=== PATIENT | female | born 1970 | race Caucasian/White ===

== ENCOUNTER → 2018-03-19 | Outpatient (CLI) | payer MEDICARE, OTHER ==
[~2018-03-19] MED LIST: ABILIFY20 MG PO; ALPRAZOLAM ER2 MG PO; ATORVASTATIN CA40 MG PO; CYMBALTA60 MG PO; ETODOLAC500 MG PO; FLEXERIL PO; GABAPENTIN 100100 MG PO; HUMALOG100 UNIT/2 SQ; HYDROCODONE-AP1 EAC6 PO; HYDROCODONE-APA1 TA1 PO; IMITREX 50 MG T50 MG PO; KLONOPIN1 MG PO; LANTUS SOL100 UNIT/1 SQ; LANTUS100 UNIT/M SUBQ; LEXAPRO 10 MG T10 M1 PO; LEXAPRO20 MG PO; NEURONTIN 300300 M1 PO; NORCO 5-325 TA1 EACH PO; NOVOLOG100 UNIT/1 SUBQ; PERCOCET PO; ROBAXIN 750 MG750 M1 PO; SUBOXONE 2 MG-1 EAC1 PO; SUBOXONE 4 MG-1 EACH PO; XANAX 0.25 MG0.25 MG PO
== END ==
LOC: M.MRI 03-12 08:43
DX: M47.896 Other spondylosis, lumbar region (principal); M47.892 Other spondylosis, cervical region; G89.29 Other chronic pain

== ENCOUNTER 2018-04-07 19:47 | Inpatient (IN) | payer MEDICARE, OTHER ==
[~2018-04-07] VITALS: Ht 175.3 cm; Wt 89.4 kg
[~2018-04-07 19:47] MED LIST changes: -ABILIFY20 MG PO; -CYMBALTA60 MG PO; -ETODOLAC500 MG PO; -HYDROCODONE-AP1 EAC6 PO; -IMITREX 50 MG T50 MG PO; -KLONOPIN1 MG PO; -NORCO 5-325 TA1 EACH PO; -NOVOLOG100 UNIT/1 SUBQ; -PERCOCET PO; -ROBAXIN 750 MG750 M1 PO; -SUBOXONE 2 MG-1 EAC1 PO; -SUBOXONE 4 MG-1 EACH PO
[2018-04-07 19:55] VITALS: BP 149/78
[2018-04-07 21:03] LABS: ABSOLUTE EOSINOPHILS 0.3 thou/uL (0.0-0.7); ABSOLUTE LYMPHOCYTES 4.6 thou/uL (0.8-5.3); ABSOLUTE MONOCYTES 0.7 thou/uL (0.0-1.2); ABSOLUTE NEUTROPHILS 4.6 thou/uL (1.6-8.1); BASOPHILS 0.3 %; EOSINOPHILS 2.7 %; HEMATOCRIT 40.4 % (37.0-47.0); HEMOGLOBIN 13.9 gm/dL (12.0-15.0); LYMPHOCYTES 45.1 %; MCH 32.4 pg (26.0-34.0); MCHC 34.4 g/dL (28.0-37.0); MCV 94.1 fL (80.0-100.0); MONOCYTES 6.4 %; MPV 8.7 fl. (7.2-11.1); NUCLEATED RBCS 0 /100WBC; PLATELET COUNT* 193 thou/uL (150-400); POLYS 45.5 %; RDW-CV 13.1 % (10.5-14.5); WBC 10.2 thou/uL (4.0-11.0)
[2018-04-07 21:08] LABS: CALCIUM 8.4 mg/dL (8.5-10.1); CREATININE 0.9 mg/dL (0.6-1.3); POTASSIUM 3.8 mmol/L (3.5-5.1)
[2018-04-07 21:11] LABS: APTT 25.9 Seconds (25.0-31.3); PROTIME 9.8 Seconds (9.20-11.50)
[2018-04-07 21:13] LABS: ALBUMIN 3.4 g/dL (3.4-5.0); TOTAL BILIRUBIN 0.2 mg/dL (<0.1-1.0); TOTAL PROTEIN 6.6 g/dL (6.4-8.2)
--- NOTE | 2018-04-07 21:46 | NUR ---
PATIENT REPORTS SHE HAS VERY DIFFFICULT VEINS. CTA WAS ORDERD ATTEMPT [address] BIGGS NOTIFIED AND IS AT BEDSIDE TALKING WITHPATIENT ABOUT LUMBAT TAP.
[2018-04-07 23:18] LABS: CSF CLARITY CLEAR; CSF COLOR COLORLESS; VOLUME 11 ml
[2018-04-07 23:19] LABS: CSF CLARITY CLEAR; CSF COLOR COLORLESS; CSF RBC 18 /mm3; CSF WBC 8 /mm3 (0-10); VOLUME 11 ml
[2018-04-07 23:19] LABS: CSF RBC 3 /mm3; CSF WBC 6 /mm3 (0-10)
[2018-04-08 00:17] VITALS: BP 123/69
[2018-04-08 00:30] VITALS: BP 124/72
[2018-04-08] MEDS ORDERED: CYMBALTA60 MG PO (03:55)
[2018-04-08] MEDS ORDERED: ETODOLAC500 MG PO (03:55)
[2018-04-08] MEDS ORDERED: KLONOPIN1 MG PO (03:57)
[2018-04-08] MEDS ORDERED: HYDROCODONE-AP1 EAC6 PO (03:58)
--- NOTE | 2018-04-08 05:16 | NUR ---
PATIENT ARRIVED TO UNIT AT 0024. ALERT AND ORIENTED X 4. VITALS STABLE. RA. ORIENTED TO ROOM AND STAFF. UP INDEPENDENTLY. EDUCATED ABOUT FALL PREVENTION. DENIES HEADACHE. COMPLIANTS OF CHRONIC BACK PAIN. FENTANYL GIVEN, EFFECTIVE. SKIN INTACT. DENIES NAUSEA. BOX LUNCH PROVIDED. FLUIDS INFUSING PER ORDER. HOURLY ROUNDS. NURSING WILL CONTINUE TO MONITOR.
[2018-04-08 07:44] LABS: HEMATOCRIT 40.2 % (37.0-47.0); HEMOGLOBIN 13.9 gm/dL (12.0-15.0); MCH 32.4 pg (26.0-34.0); MCHC 34.5 g/dL (28.0-37.0); MCV 93.7 fL (80.0-100.0); MPV 8.9 fl. (7.2-11.1); RBC 4.29 mil/uL (4.20-5.00); RDW-CV 12.9 % (10.5-14.5); WBC 8.4 thou/uL (4.0-11.0)
[2018-04-08 07:56] LABS: CREATININE 0.8 mg/dL (0.6-1.3)
[2018-04-08] MEDS ORDERED: ROBAXIN 750 MG750 M1 PO (08:11)
[2018-04-08 08:30] VITALS: BP 108/67
[2018-04-08] MEDS ORDERED: PERCOCET PO (12:04)
[2018-04-08] MEDS ORDERED: IMITREX 50 MG T50 MG PO (12:05)
[2018-04-08 12:27] VITALS: BP 108/67
[2018-04-08 12:48] VITALS: BP 108/67
--- NOTE | 2018-04-08 12:50 | NUR ---
PATIENT HAS BEEN ALERT AND ORIENTED TODAY, PLEASANT BUT ANXIOUS. SPOUSE AT BEDSIDE TODAY, MRI WAS DONE TODAY WITH NORMAL RESULTS. PATIENT IS BEING DISCHARGED TO HOME. DISCHARGE INSTRUCTIONS AND PRESCRIPTIONS GIVEN TO PATIENT, QUESTIONS ANSWERED FOR PATIENT AND . AMBULATED OUT TO TRUCK TO GO HOME.
== END 2018-04-08 12:53 | disposition home or self-care (01) | DRG 103 ==
LOC: M.ERS 19:47 → M.TBA-ER 23:48 → M.ORTHSURG 23:48
PROVIDERS: Emergency Medicine; Physician Assistant; ADMIT Internal Medicine
PROC: 009U3ZX Drainage of Spinal Canal, Percutaneous Approach, Diagnostic (ICD-10-PCS; principal; 2018-04-07)
DX: G43.901 Migraine, unspecified, not intractable, with status migrainosus (principal); G25.81 Restless legs syndrome; F41.9 Anxiety disorder, unspecified; F17.210 Nicotine dependence, cigarettes, uncomplicated; E11.65 Type 2 diabetes mellitus with hyperglycemia; M47.896 Other spondylosis, lumbar region; M47.892 Other spondylosis, cervical region; M62.838 Other muscle spasm; Z79.4 Long term (current) use of insulin; Z79.899 Other long term (current) drug therapy; Z88.8 Allergy status to other drugs, medicaments and biological substances

== ENCOUNTER 2018-06-30 15:10 | Emergency (ER) | payer MEDICARE, OTHER ==
[~2018-06-30] VITALS: Ht 177.8 cm; Wt 91.7 kg
[~2018-06-30 15:10] MED LIST changes: +CYMBALTA60 MG PO; +ETODOLAC500 MG PO; +HYDROCODONE-AP1 EAC6 PO; +IMITREX 50 MG T50 MG PO; +KLONOPIN1 MG PO; +PERCOCET PO; +ROBAXIN 750 MG750 M1 PO
[2018-06-30] MEDS ORDERED: NOVOLOG100 UNIT/1 SUBQ (15:24)
[2018-06-30] MEDS ORDERED: ABILIFY20 MG PO (15:26)
[2018-06-30] MEDS ORDERED: SUBOXONE 2 MG-1 EAC1 PO (15:26)
[2018-06-30 16:04] LABS: ABSOLUTE LYMPHOCYTES 2.3 thou/uL (0.8-5.3); ABSOLUTE MONOCYTES 0.3 thou/uL (0.0-1.2); ABSOLUTE NEUTROPHILS 14.4 thou/uL (1.6-8.1); BASOPHILS 0.1 %; EOSINOPHILS 0.2 %; HEMATOCRIT 43.4 % (37.0-47.0); HEMOGLOBIN 14.3 gm/dL (12.0-15.0); LYMPHOCYTES 13.3 %; MCH 30.7 pg (26.0-34.0); MCV 92.9 fL (80.0-100.0); MONOCYTES 1.7 %; MPV 8.9 fl. (7.2-11.1); NUCLEATED RBCS 0 /100WBC; PLATELET COUNT* 237 thou/uL (150-400); POLYS 84.7 %; RBC 4.67 mil/uL (4.20-5.00); RDW-CV 13.2 % (10.5-14.5)
[2018-06-30 16:11] LABS: BE -1.9 mmol/L (-2 to +3); HCO3 22.3 mmol/L (22.0-26.0); PCO2 36.7 mmHg (35.0-45.0); PO2 72.1 mmHg (75.0-100.0); pH 7.402 (7.340-7.450)
[2018-06-30 16:16] LABS: CREATININE 0.8 mg/dL (0.6-1.3); POTASSIUM 3.8 mmol/L (3.5-5.1)
[2018-06-30 16:20] LABS: ALBUMIN 3.6 g/dL (3.4-5.0); TOTAL BILIRUBIN 0.4 mg/dL (<0.1-1.0); TOTAL PROTEIN 7.6 g/dL (6.4-8.2)
[2018-06-30 16:33] LABS: URINE CLARITY CL; URINE COLOR YELLOW; URINE PROTEIN NEGATIVE (Negative); URINE SPECIFIC GRAVITY < 1.005 (1.005-1.030)
[2018-06-30 16:34] LABS: BACTERIA 1-9 Few /HPF (None Seen); CASTS None Seen /LPF (None Seen); CRYSTALS None Seen /LPF (None Seen); SQUAMOUS 4-10 Moderate /LPF (0-3); URINE BILIRUBIN NEGATIVE (Negative); URINE BLOOD TR (Negative); URINE GLUCOSE-RANDOM 3 (Negative); URINE KETONES NEGATIVE (Negative); URINE LEUKOCYTES NEGATIVE (Negative); URINE NITRITE NEGATIVE (Negative); URINE RBC 3-10 Few /HPF (0-2); URINE UROBILINOGEN 0.2 E.U./dl (0.2-1.0); URINE WBC 0-5 Rare /HPF (0-5); YEAST Present (None Seen)
[2018-06-30 17:29] VITALS: BP 114/65
== END 2018-06-30 17:30 | disposition home or self-care (01) ==
LOC: M.ERS 15:10
PROVIDERS: Nurse Practitioner Family
DX: E11.65 Type 2 diabetes mellitus with hyperglycemia (principal); J20.9 Acute bronchitis, unspecified; G43.009 Migraine without aura, not intractable, without status migrainosus; G25.81 Restless legs syndrome; M41.9 Scoliosis, unspecified; Z79.4 Long term (current) use of insulin; Z88.8 Allergy status to other drugs, medicaments and biological substances

== ENCOUNTER 2018-07-31 11:16 | Emergency (ER) | payer MEDICARE, OTHER ==
[~2018-07-31] VITALS: Ht 177.8 cm; Wt 81.7 kg
[~2018-07-31 11:16] MED LIST changes: +ABILIFY20 MG PO; +NOVOLOG100 UNIT/1 SUBQ; +SUBOXONE 2 MG-1 EAC1 PO
[2018-07-31] MEDS ORDERED: SUBOXONE 4 MG-1 EACH PO (11:25)
[2018-07-31] MEDS ORDERED: NORCO 5-325 TA1 EACH PO (12:48)
[2018-07-31] MEDS ORDERED: FLEXERIL PO (12:48)
[2018-07-31 13:14] VITALS: BP 126/71
== END 2018-07-31 13:15 | disposition home or self-care (01) ==
LOC: M.ERS 11:16
DX: S16.1XXA Strain of muscle, fascia and tendon at neck level, initial encounter (principal); V89.0XXA Person injured in unspecified motor-vehicle accident, nontraffic, initial encounter; Y93.89 Activity, other specified; Y92.89 Other specified places as the place of occurrence of the external cause; Y99.8 Other external cause status